=== PATIENT | male | born 1950 | race Caucasian/White ===

== ENCOUNTER → 2018-01-01 | Outpatient (CLI) | payer BC, MEDICARE ==
[~2018-01-01] MED LIST: AMIO200T2 PO; AMLO1CAP31; AMLO1CAP4 PO; ASPI-983 PO; ATOR10TA66 PO; CEPH250C PO; DOXA4TAB2 PO; DOXY100T2 PO; DXZS4T PO; FURO-124 PO; HCT25T; HCT25T PO; HYDR50TA3 PO; IBP800T; IBUP-15 PO; IBUP-2055 PO; INSASP10V; INSU100C4; INSU100C4 SQ; INSU100I10 SQ; INSU100I23 SQ; INSU100I3; INSU100V8; LISI10TA2 PO; LOTREL 5/10; LVF500T PO; METF-380 PO; METF1000 PO; METO-370 PO; METO-387 PO; MPR22T TOP; MTF500TCR; NF-URO10; PROP10TA8 PO; SACU1TAB PO; SIMV20TA3 PO; SITA100T12 PO; VENL75CA93 PO; VICODIN 5/500; VNL75CCR; VNL75CCR PO; ZINC50TA31 PO; ZINC50TA51 PO; [UNRECOGNIZED DRUG - CODE] PO
--- NOTE | 2018-01-01 16:16 | Diagnostic Imaging Report ---
INDICATION: Left ankle pain. EXAMINATION: AP, oblique and lateral views of the left ankle were obtained. FINDINGS: There is advanced degenerative change of the ankle joint with joint space narrowing and osteophyte formation. There are multiple adjacent calcifications which are probably chronic. There is marked degenerative change of the talocalcaneal joints and throughout the tarsal bones. There are vascular calcifications noted. IMPRESSION: Extensive degenerative changes throughout the tarsal bones and talocalcaneal joints and ankle joint. Chronic calcifications adjacent to the ankle joint are noted. There is no definite acute process. Dictated by: Dictated on workstation # [id number]
== END ==
LOC: RAD 15:43
PROVIDERS: ATTEND Internal Medicine Cardiovascular Disease
DX: M19.072 Primary osteoarthritis, left ankle and foot (principal); M89.8X7 Other specified disorders of bone, ankle and foot
CPT/HCPCS: 73610

== ENCOUNTER → 2018-01-05 | Outpatient (CLI) | payer BC, MEDICARE ==
[~2018-01-05] MED LIST changes: +CATHETER FLUSH 10 ML SYR IV PRN; +IOHEXOL 350 MG/ML 150 ML (OMNIPAQUE 350) VIAL IV ONE; +NS 100 ML (IVPB) BAG IV ONE
[2018-01-05 08:23] LABS: BUN/CREATININE RATIO 15; CALCIUM 9.2 MG/DL (8.5-10.1); CARBON DIOXIDE 22 MMOL/L (21-32); CHLORIDE 105 MMOL/L (98-107); CREATININE SERUM 1.15 MG/DL (0.60-1.30); GFR ESTIMATED > 60; GLUCOSE 172 MG/DL (70-105); POTASSIUM 4.1 MMOL/L (3.6-5.0); SODIUM 138 MMOL/L (135-145)
--- NOTE | 2018-01-05 10:20 | Diagnostic Imaging Report ---
INDICATION: Left foot pain and discoloration as well as claudication. TECHNIQUE: Axial imaging through the abdomen, pelvis and bilateral lower extremities was performed after the administration of intravenous contrast and utilizing CT angiography protocol. Multiplanar, 3-D and MIP reformations were also performed. COMPARISON: No prior studies are available for comparison. FINDINGS: The lung bases are clear. The liver is unremarkable. The gallbladder is surgically absent. The pancreas and spleen are unremarkable. No adrenal mass is detected. The right kidney contains a 6.8 cm cyst. The visualized small and large bowel loops are unremarkable. The appendix is unremarkable. There is no ascites. Bladder and prostate are unremarkable. The aorta does show some atherosclerotic calcifications but is non-aneurysmal. There are single renal arteries bilaterally. There appears to be some calcification at the origins of the renal arteries bilaterally. Bilateral common and external iliacs demonstrate atherosclerotic plaque but no high-grade stenosis is seen. Bilateral common femoral arteries are patent. The celiac and SMA are patent. The LESTER is patent. Bilateral superficial femoral arteries do show some mild calcified plaque but no high-grade stenosis is seen. Bilateral popliteal arteries are patent. There is a large popliteal cyst on the right with a small popliteal cyst on the left. Tibial vessels are calcified. There appears to be multifocal disease within the right anterior tibial artery which may occlude distally. There is two-vessel runoff on the right via the peroneal and posterior tibial artery. Left anterior tibial artery is very small and is poorly visualized distally. There appears to be two-vessel runoff to the ankle on the left via the posterior tibial and peroneal. There are severe degenerative changes involving the left ankle. Dorsalis pedis on the left is unremarkable. Dorsalis pedis on the right appears to be very small. IMPRESSION: There are atherosclerotic changes in the aorta and lower extremity arterial systems however no high-grade stenosis or occlusion is seen. There is two-vessel runoff to the ankles bilaterally. Dictated by: Dictated on workstation # [id number]
== END ==
LOC: RAD 07:43
PROVIDERS: ATTEND Physician Assistant
DX: I73.9 Peripheral vascular disease, unspecified (principal); I70.0 Atherosclerosis of aorta; L81.8 Other specified disorders of pigmentation
CPT/HCPCS: 36415; 75635; 80048

== ENCOUNTER → 2018-01-19 | Outpatient (CLI) | payer BC, MEDICARE ==
[~2018-01-19] MED LIST changes: -CATHETER FLUSH 10 ML SYR IV PRN; -IOHEXOL 350 MG/ML 150 ML (OMNIPAQUE 350) VIAL IV ONE; -NS 100 ML (IVPB) BAG IV ONE
== END ==
LOC: CARD 11:46
PROVIDERS: ATTEND Internal Medicine Cardiovascular Disease
DX: I11.0 Hypertensive heart disease with heart failure (principal); I50.9 Heart failure, unspecified; E11.9 Type 2 diabetes mellitus without complications; E78.2 Mixed hyperlipidemia; E66.9 Obesity, unspecified; M48.00 Spinal stenosis, site unspecified
CPT/HCPCS: 93306

== ENCOUNTER → 2018-11-24 | Outpatient (CLI) | payer BC, MEDICARE ==
[~2018-11-24] MED LIST changes: -AMIO200T2 PO; +AMIO200T4 PO; +METF-399 PO; -METF1000 PO; -ZINC50TA31 PO; +ZINC50TA58 PO
--- NOTE | 2018-11-24 10:00 | Diagnostic Imaging Report ---
PA and lateral chest at 1004 hours. INDICATION: Diabetes, hyperlipidemia. FINDINGS: The heart size is within normal limits and stable when compared to 09/26/2017. The left-sided defibrillator device noted on the prior exam is again evident and no different. The lungs are clear. There is no evidence for failure, pneumonia or for pleural effusion. The mediastinum is not widened. The osseous structures are intact. IMPRESSION: There is no evidence for an acute cardiopulmonary abnormality. Dictated by: Dictated on workstation # [id number]
[2018-11-24 10:23] LABS: BILIRUBIN,TOTAL 0.7 MG/DL (0.1-1.0); CALCIUM 9.2 MG/DL (8.5-10.1); CREATININE SERUM 1.38 MG/DL (0.60-1.30); POTASSIUM 4.5 MMOL/L (3.6-5.0); TOTAL PROTEIN 6.7 GM/DL (6.4-8.2)
[2018-11-24 10:43] LABS: TSH (THYROID ANALYZER) 1.56 UIU/ML (0.35-4.94)
== END ==
LOC: RAD 09:29
PROVIDERS: ATTEND Internal Medicine Cardiovascular Disease
DX: E11.9 Type 2 diabetes mellitus without complications (principal); I10 Essential (primary) hypertension; E78.2 Mixed hyperlipidemia; E66.9 Obesity, unspecified; M48.00 Spinal stenosis, site unspecified
CPT/HCPCS: 36415; 71046; 80053; 84443

== ENCOUNTER → 2018-11-30 | Outpatient (CLI) | payer BC, MEDICARE ==
[~2018-11-30] MED LIST changes: +CATHETER FLUSH 10 ML SYR IV PRN; +REGADENOSON 0.4 MG/5 ML SYR (LEXISCAN) IV ONE
[2018-11-30 09:11] VITALS: BP 136/65
--- NOTE | 2018-11-30 11:46 | STRESS TEST ---
DATE OF SERVICE: 11/30/2018 LEXISCAN MYOVIEW STRESS TEST REPORT Baseline heart rate is 73, baseline blood pressure 141/62. Baseline EKG is sinus rhythm with ventricular paced rhythm. In summary, the patient was injected with 10.27 mCi of technetium-99 Myoview and the resting images were obtained. Then, the patient received 0.4 mg of Lexiscan followed by 30.3 mCi of technetium-99 Myoview. Throughout the test, there were no EKG changes. The resting and stress images were reviewed and compared in the short axis, horizontal long axis, and vertical long axis views. Review of the images showed diaphragmatic attenuation with good radiotracer uptake, no significant ischemia or infarction was seen. SSS is 1. SDS is 1. TID value 0.96. On the gated images, the left ventricle appeared to be dilated with preserved systolic function. Calculated ejection fraction 52%, end diastolic volume 146 mL and systolic volume 71 mL. CONCLUSION: 1. The patient tolerated Lexiscan well. 2. Diaphragmatic attenuation with no significant ischemia or infarction on SPECT images. 3. Prominent left ventricular size with preserved contractility. Calculated ejection fraction 52%. Job ID: [id number] DocumentID: [id number] Dictated Date: 11/30/2018 11:32:[address] Date: 11/30/2018 11:45:11 Dictated By: ETHAN MCKEON MD
== END ==
LOC: RAD 07:20
PROVIDERS: ATTEND Internal Medicine Cardiovascular Disease
DX: I10 Essential (primary) hypertension (principal); E78.2 Mixed hyperlipidemia; E11.9 Type 2 diabetes mellitus without complications; E66.9 Obesity, unspecified; Z68.32 Body mass index [BMI] 32.0-32.9, adult
CPT/HCPCS: 78452; 93017

== ENCOUNTER → 2021-04-02 | Outpatient (CLI) | payer BC, MEDICARE ==
[~2021-04-02] MED LIST changes: -AMIO200T4 PO; +AMIO200T6 PO; +ASPI-1238 PO; -ASPI-983 PO; -CATHETER FLUSH 10 ML SYR IV PRN; -HYDR50TA3 PO; +HYDR50TA6 PO; -IBUP-2055 PO; +IBUP-2473 PO; -LISI10TA2 PO; +LISI10TA25 PO; -METO-370 PO; -METO-387 PO; +METO50TA7 PO; +MTP25TSR PO; -REGADENOSON 0.4 MG/5 ML SYR (LEXISCAN) IV ONE; -SACU1TAB PO; +SACU1TAB2 PO; +SIMV20TA26 PO; -SIMV20TA3 PO
== END ==
LOC: CARD 10:10
PROVIDERS: ATTEND Physician Assistant
DX: I08.3 Combined rheumatic disorders of mitral, aortic and tricuspid valves (principal); I11.9 Hypertensive heart disease without heart failure
CPT/HCPCS: 93306

== ENCOUNTER → 2021-08-20 | Outpatient (CLI) | payer BC, MEDICARE ==
[~2021-08-20] MED LIST changes: +AMOX500C2 PO; +BETA15CR14 TP; +DULA1.5P2 SQ; +FURO40TA4 PO; +IBUP-30 PO; +INSU100V7 SQ; +MTP100TCR PO; +OMG1KC PO; +ROSU10TA28 PO; +TMSL.4C PO
== END ==
LOC: LABNPT 08:15
PROVIDERS: ATTEND Internal Medicine Cardiovascular Disease
DX: Z20.822 Contact with and (suspected) exposure to COVID-19 (principal)
CPT/HCPCS: 87635

== ENCOUNTER 2021-08-22 13:00 | Day surgery (SDC) | payer BC, MEDICARE ==
[~2021-08-22] VITALS: Ht 172.7 cm; Wt 99.0 kg
[2021-08-22] VITALS (7 sets, daily range): BP systolic 110–136; BP diastolic 61–74
[2021-08-22 11:49] LABS: HEMATOCRIT 40 % (40-54); MEAN CORPUSCULAR HEMOGLOBIN 30 pg (25-34); MEAN CORPUSCULAR HGB CONC 33 g/dL (32-36); MEAN CORPUSCULAR VOLUME 92 fL (80-99); MEAN PLATELET VOLUME 9.4 fL (9.0-12.2); PLATELET COUNT 256 10^3/uL (130-400); WHITE BLOOD COUNT 9.5 10^3/uL (4.3-11.0)
[2021-08-22 12:14] LABS: ALBUMIN 3.9 GM/DL (3.2-4.5); BILIRUBIN,TOTAL 1.2 MG/DL (0.1-1.0); CALCIUM 9.3 MG/DL (8.5-10.1); CREATININE SERUM 1.37 MG/DL (0.60-1.30); POTASSIUM 3.5 MMOL/L (3.6-5.0); TOTAL PROTEIN 7.8 GM/DL (6.4-8.2)
--- NOTE | 2021-08-22 12:33 | Diagnostic Imaging Report ---
INDICATION: Preop for heart catheter, coronary artery disease, pacemaker. COMPARISON: 09/26/2017 FINDINGS: Single view the chest demonstrates stable cardiac enlargement. Lungs are clear. There is no pneumothorax but pacemaker stable. IMPRESSION: Cardiac enlargement without pulmonary edema or acute infiltrate. Dictated by: Dictated on workstation # [id number]
[~2021-08-22 13:00] MED LIST changes: +HEParin (CATH LAB) 2,000 ML IV ONE; +LIDOCAINE 1% INJ 20 ML 20 ML VIAL ONE; +LIDOCAINE 2% VISCOUS 15 ML UDC ONE; +LIDOCAINE 2% VISCOUS 15 ML UDC PO ONE; +NS IV 1000 ML 1,000 ML IV SCH; +NS IV 1000 ML 1,000 ML ONE
[2021-08-22] MEDS ORDERED: fentaNYL INJ 100 MCG/2 ML AMP ONE (13:12)
[2021-08-22] MEDS ORDERED: MIDAZOLAM 5 MG/5 ML (VERSED) VIAL ONE (13:13)
[2021-08-22] MEDS ORDERED: NITRO DRIP 25000 MCG/D5W 250 ML IV ONE (14:02)
[2021-08-22] MEDS ORDERED: HEParin 1000 UNIT/ML (10ML VIAL) FOR BOLUS ONE (14:02)
[2021-08-22] MEDS ORDERED: CLOPIDOGREL 300 MG (PLAVIX) TABLET PO ONE (14:23)
[2021-08-22] MEDS ORDERED: ASPIRIN 325 MG (5 GR) TABLET ONE (14:23)
[2021-08-22] MEDS ORDERED: PATIENT MAY USE OWN MEDS, ALL PO SCH (14:30)
--- NOTE | 2021-08-22 14:35 | Cardiac Cath Report ---
Cardiac Cath Report Physician (s)/Tray Packer (s) Physician ETHAN MCKEON MD Pre-Procedure Diagnosis Pre-Procedure Diagnosis: Coronary artery disease Post-Procedure Note Procedure Start Date: Aug 22, 2021 Name of Procedure: Left heart catheterization Stenting to the LAD Findings/Procedure Note PROCEDURE NOTE: 71-year-old gentleman with severe mitral regurgitation, cardiomyopathy, scheduled for SHALONDA and for cardiac catheterization. After explaining the procedure to the patient, all pros and cons were explained, all questions were answered. The patient signed the consent and then he was placed on the cardiac catheterization laboratory. Groin was prepped SL fashion local anesthesia was used. Sheath placed in the left femoral artery. Rhina right and left catheter were used to access the coronary system. Pigtail was used to access the left ventricular cavity. Left ventriculogram was not done, pressure was measured Patient received 5000 units of heparin, EBU guide was advanced to the left coronary system, BMW wire was advanced and parked distally then balloon angioplasty with 2.5 balloon then stenting using Marlin 2.5 x 15 mm expanded to 2.7 mm with excellent results. At the end of the procedure the sheath was removed. Closure device was deployed FINDINGS: Hemodynamics LV 135/20, end-diastolic pressure of 20 Aorta 129/64 mean of 190 ANATOMY: Left Main is free of obstructive disease Left Anterior Descending has severe stenosis distally, successful balloon angioplasty then stenting using Marlin 2.5 x 15 mm expanded to 2.71 mm with excellent results. Left Circumflex is moderate in size with mild disease nonobstructive disease Right Coronary Artery is dominant artery with mild to moderate disease nonobstructive disease LV Gram was not done, pressure was measured CONCLUSION: 1. Severe stenosis at the mid to distal LAD with successful balloon angioplasty then stenting using Marlin 2.5 x 15 mm expanded to 2.71 mm with excellent results 2. Mild to moderate proximal and mid right coronary artery disease, mild disease in the circumflex artery nonobstructive disease 3. Normal left ventricular end-diastolic pressure DISCUSSION AND RECOMMENDATION: Continue to maximize medical therapy, monitor the mitral valve for possible mitral valve clip Anesthesia Type: Conscious Sedation Estimated blood loss (mL): 30 ml Contrast Amount: 104 ml Total Radiation Dose: 1119 mGy Post-Procedure Diagnosis Post-operative diagnosis: Chest pain Coronary artery disease Hypertension Hyperlipidemia ETHAN MCKEON MD Aug 22, 2021 14:35
[2021-08-22] MEDS: NS IV 1000 ML 1,000 ML IV SCH (15:28)
[2021-08-22] MEDS ORDERED: FLU QUAD HIGH DOSE 240 MCG/0.7 ML 2021-22 (FLUZONE) IM ONE (17:00)
[2021-08-22] MEDS ORDERED: INSULIN GLULISINE SQ SCH ×2 (17:45)
[2021-08-22] MEDS ORDERED: IBUPROFEN TABLET 200 MG TAB PO PRN (17:45)
[2021-08-22] MEDS ORDERED: INSULIN GLULISINE 20 UNIT SQ SCH (17:45)
[2021-08-22] MEDS ORDERED: NON-FORMULARY MEDICATION 1 EA EA (Dulaglutide (Trulicity) 1.5 MG) SQ SCH (17:45)
[2021-08-22] MEDS ORDERED: meTOprolol SUCCINATE 100 MG (TOPROL XL) TAB PO SCH ×2 (18:00→18:45)
[2021-08-22] MEDS: AMOXICILLIN 500 MG (POLYMOX) CAP PO SCH (20:10)
[2021-08-22] MEDS: inSUlin (REGULAR) HUMAN 1 UNIT/0.01 ML (CHARGE PER UNIT) SC SCH (20:11)
[2021-08-22] MEDS ORDERED: [UNRECOGNIZED DRUG - OTHER] SQ SCH (21:00)
[2021-08-22] MEDS ORDERED: INSULIN GLARGINE HUM REC ANLOG 24 UNIT SQ SCH (21:00)
[2021-08-22] MEDS ORDERED: TAMSULOSIN 0.4 MG (FLOMAX) CAP PO SCH (21:00)
[2021-08-23 00:15] VITALS: BP 133/80
[2021-08-23] MEDS: NS IV 1000 ML 1,000 ML IV SCH (00:49)
[2021-08-23 04:00] VITALS: BP 121/60
[2021-08-23] MEDS ORDERED: CLOP75TA28 PO (05:45)
[2021-08-23] MEDS ORDERED: PANT40SU PO (05:45)
--- NOTE | 2021-08-23 05:46 | Discharge Inst-Post CATH ---
Discharge Inst-CATH/EP Problems Reviewed?: Yes Post Cardiac Cath/EP D/C Inst Follow Up/Plan Appointment with Dr Eugene in 2-4 weeks <b>CARDIAC CATH/EP PROCEDURE DISCHARGE INSTRUCTIONS</b> ACTIVITY * Go Home directly and rest. * Limit activity of the leg (or wrist if it was used) for 7 days including aerobics, swimming, jogging, bicycling, etc. * Restrict stair-climbing for 7 days if possible, if not, climb up with your non-cath leg, then bring together on the same step. * Avoid lifting, pushing, pulling or excessive movement of the affected extremity for 7 days. * Customary sexual activity may be resumed after 2 days-use caution not to use a position that strains or causes pain to the affected extremity. * No driving for 24 hours. * NO SMOKING. * Avoid straining for bowel movements for 7 days. * Gentle walking on level ground is allowed. * Returning to work will depend on the type of procedure and the results. Your doctor will discuss this with you. CALL YOUR DOCTOR FOR ANY OF THE FOLLOWING: *If bleeding from the puncture site occurs- Apply gentle pressure to site with clean cloth and call your doctor or EMS. * If a knot or lump forms under the skin, increases in size, or causes pain. * If bruising appears to be worsening or moving further down your leg instead of disappearing. * Temperature above 101 F. CARE OF YOUR GROIN INCISION; * Bruising or purple discoloration of the skin near the puncture site is common. * You may shower only, no bathtub bathing for 5 days. Be careful to avoid slipping as your leg may feel stiff. * If a closure device was used on your femoral artery, please see the attached guide regarding care of the device and your leg. * Leave dressing on FOR 24 hours. CARE OF YOUR WRIST INCISION; * Bruising or purple discoloration of the skin near the puncture site is common. * You may shower. * DO NOT submerge wrist. * Leave dressing on FOR 24 hours. ETHAN EUGENE MD Aug 23, 2021 05:46
[2021-08-23 05:59] LABS: HEMATOCRIT 36 % (40-54); HEMOGLOBIN 12.2 g/dL (13.3-17.7); MEAN CORPUSCULAR HEMOGLOBIN 30 pg (25-34); MEAN CORPUSCULAR HGB CONC 34 g/dL (32-36); MEAN CORPUSCULAR VOLUME 91 fL (80-99); MEAN PLATELET VOLUME 9.6 fL (9.0-12.2); PLATELET COUNT 248 10^3/uL (130-400); WHITE BLOOD COUNT 10.1 10^3/uL (4.3-11.0)
[2021-08-23 06:10] LABS: POTASSIUM 3.6 MMOL/L (3.6-5.0)
[2021-08-23 06:11] LABS: CALCIUM 9.4 MG/DL (8.5-10.1)
[2021-08-23 06:15] LABS: CREATININE SERUM 1.26 MG/DL (0.60-1.30)
[2021-08-23] MEDS: inSUlin (REGULAR) HUMAN 1 UNIT/0.01 ML (CHARGE PER UNIT) SC SCH (06:20)
[2021-08-23] MEDS ORDERED: VENlafaxine XR 75 MG (EFFEXOR XR) CAP PO SCH (07:00)
[2021-08-23 08:00] VITALS: BP 142/82
[2021-08-23] MEDS: AMOXICILLIN 500 MG (POLYMOX) CAP PO SCH (08:33)
--- NOTE | 2021-08-23 08:34 | Cardiology Progress Note ---
Subjective Date Seen by Provider: Aug 23, 2021 Time Seen by Provider: 08:32 Subjective/Events-last exam Patient was seen and evaluated, laying down in bed, groin is healing well. No new complaint Review of Systems General: No Chills, No Night Sweats, No Fatigue, No Malaise, No Appetite, No Other HEENT: No Head Aches, No Visual Changes, No Eye Pain, No Ear Pain, No D ysphasia, No Sinus Congestion, No Post Nasal Drip, No Sore Throat, No Other Pulmonary: No Dyspnea, No Cough, No Pleuritic Chest Pain, No Other Cardiovascular: No: Chest Pain, Palpitations, Orthopnea, Paroxysmal Noc. Dyspnea, Edema, Lt Headedness, Other Objective-Cardiology Exam Last Set of Vital Signs Vital Signs 08/23/21 08:00 Temp 36.6 Pulse 71 Resp 22 B/P (MAP) 142/82 (102) Pulse Ox 92 O2 Delivery Room Air I&O Intake and Output 08/23/21 00:00 Intake Total 720 ml Balance 720 ml Intake Oral 720 ml # Voids 2 General: Alert, Oriented X3, Cooperative HEENT: Atraumatic, PERRLA Neck: Supple, No JVD, No Thyromegaly Lungs: Clear to Auscultation, Normal Air Movement Heart: Regular Rate, Normal S1, Normal S2, No Murmurs Abdomen: Normal Bowel Sounds, Soft, No Tenderness, No Hepatosplenomegaly, No Masses Extremities: No Clubbing, No Cyanosis, No Edema, Normal Pulses, No Tenderness/Swelling Skin: No Rashes, No Breakdown, No Significant Lesion Neuro: Normal Gait, Normal Speech, Strength at 5/5 X4 Ext, Normal Tone, Sensation Intact Psych/Mental Status: Mental Status NL, Mood NL Results Lab Laboratory Tests 08/22/21 11:43 08/23/21 05:47 A/P-Cardiology Admission Diagnosis Coronary artery disease Hypertension Hyperlipidemia Diabetes mellitus Assessment/Plan Coronary artery disease status post stenting to the LAD with good results, educated about medication noncompliance with medication, groin is healed well. Hypertension, blood pressure Hyperlipidemia, continue current medications Diabetes mellitus ETHAN MCKEON MD Aug 23, 2021 08:34
[2021-08-23] MEDS ORDERED: CLOPIDOGREL 75 MG (PLAVIX) TABLET PO SCH (09:00)
[2021-08-23] MEDS ORDERED: AMIODARONE 200 MG (CORDARONE) TAB PO SCH (09:00)
[2021-08-23] MEDS ORDERED: ASPIRIN E.C. 81 MG (ECOTRIN) TAB PO SCH (09:00)
[2021-08-23] MEDS ORDERED: FUROSEMIDE 40 MG (LASIX) TAB PO SCH (09:00)
[2021-08-23] MEDS ORDERED: ROSUVASTATIN 10 MG (CRESTOR) TABLET PO SCH (12:00)
[2021-08-23] MEDS ORDERED: lisINopril 10 MG (PRINIVIL) TABLET PO SCH (12:00)
--- NOTE | 2021-09-03 13:37 | Conscious Sedation/ASA ---
HECTOR LIND 09/03/21 1337: Conscious Sedation Pre-Proced ASA Score For ASA 3 and 4: Consider anesthesia and medical clearance. Also, for patients with a history of failed moderate sedation consider anesthesia. Airway Lungs Heart ASA score ASA 1: a normal healthy patient ASA 2: a patient with a mild systemic disease (mid diabetes, controlled hypertension, obesity ASA 3: a patient with a severe systemic disease that limits activity (angina, COPD, prior Myocardial infarction) ASA 4: a patient with an incapacitating disease that is a constant threat to life (CHF, renal failure) ASA 5: a moribund patient not expected to survive 24 hrs. (ruptured aneurysm) ASA 6: a declared brain- patient whose organs are being harvested. For emergent operations, add the letter E after the classification Sedation Plan The patient is an appropriate candidate to undergo the planned procedure, sedation, and anesthesia. The patient immediately re-assessed prior to indication. ETHAN MCKEON MD 09/05/21 0726: Conscious Sedation Pre-Proced Time 07:26 ASA Score 3 Mallampati Classification Grade 3 Sedation Plan Analgesia, Amnesia, Plan communicated to team members, Discussed options with patient/fam, Discussed risks with patient/fam HECTOR LIND Sep 03, 2021 13:37 ETHAN MCKEON MD Sep 05, 2021 07:26
[2021-09-14] MEDS ORDERED: LEVO750T39 PO (08:47)
== END 2021-08-23 09:59 | disposition home or self-care (01) ==
LOC: CATH 13:00 → CSD 15:11 → CATH 08-23 09:59
PROVIDERS: ATTEND Internal Medicine Cardiovascular Disease
DX: I25.10 Atherosclerotic heart disease of native coronary artery without angina pectoris (principal); I10 Essential (primary) hypertension; I47.2 Ventricular tachycardia; I50.9 Heart failure, unspecified; I42.8 Other cardiomyopathies; I08.1 Rheumatic disorders of both mitral and tricuspid valves; I63.9 Cerebral infarction, unspecified; I65.23 Occlusion and stenosis of bilateral carotid arteries; I73.9 Peripheral vascular disease, unspecified; M48.00 Spinal stenosis, site unspecified; G47.33 Obstructive sleep apnea (adult) (pediatric); N40.0 Benign prostatic hyperplasia without lower urinary tract symptoms; E11.9 Type 2 diabetes mellitus without complications; E78.2 Mixed hyperlipidemia; E66.9 Obesity, unspecified; Z68.33 Body mass index [BMI] 33.0-33.9, adult; Z79.82 Long term (current) use of aspirin; Z79.899 Other long term (current) drug therapy; Z83.3 Family history of diabetes mellitus
CPT/HCPCS: 71045; 80048; 80053; 80061; 82947; 85027 ×2; 85610; 85730; 87081; 93005; 93458; C1725; C1760; C1769; C1874; C1887 ×2; C1894; C9600; 36415

== ENCOUNTER 2021-09-14 10:00 | Day surgery (SDC) | payer BC, MEDICARE ==
[~2021-09-14] VITALS: Ht 173 cm; Wt 100.0 kg
[2021-09-14] VITALS (11 sets, daily range): BP systolic 112–133; BP diastolic 57–85
[2021-09-14 08:24] LABS: HEMATOCRIT 40 % (40-54); HEMOGLOBIN 13.1 g/dL (13.3-17.7); MEAN CORPUSCULAR HEMOGLOBIN 30 pg (25-34); MEAN CORPUSCULAR HGB CONC 33 g/dL (32-36); MEAN CORPUSCULAR VOLUME 91 fL (80-99); MEAN PLATELET VOLUME 9.2 fL (9.0-12.2); PLATELET COUNT 265 10^3/uL (130-400); WHITE BLOOD COUNT 10.1 10^3/uL (4.3-11.0)
[2021-09-14 08:39] LABS: INR 1.1 (0.8-1.4); PROTHROMBIN TIME PATIENT 14.1 SEC (12.2-14.7)
[2021-09-14 08:48] LABS: BILIRUBIN,TOTAL 1.1 MG/DL (0.1-1.0); CALCIUM 9.7 MG/DL (8.5-10.1); CREATININE SERUM 1.5 MG/DL (0.60-1.30); POTASSIUM 3.9 MMOL/L (3.6-5.0); TOTAL PROTEIN 7.7 GM/DL (6.4-8.2)
--- NOTE | 2021-09-14 08:57 | Diagnostic Imaging Report ---
INDICATION: Nonhealing wound, peripheral arterial disease. Evaluation prior to angiography with possible angioplasty. TECHNIQUE: Single view chest 8:49 AM. CORRELATION STUDY: 08/22/2021 FINDINGS: Left-sided AICD, stable. Stable mild cardiac enlargement without failure. The lungs are clear with no consolidating infiltrate. There is no significant effusion or pneumothorax. IMPRESSION: 1. Stable cardiac enlargement. No acute cardiopulmonary abnormality Dictated by: Dictated on workstation # [id number]
[~2021-09-14 10:00] MED LIST changes: +CLOP75TA28 PO; +LEVO750T39 PO; -LIDOCAINE 2% VISCOUS 15 ML UDC ONE; -LIDOCAINE 2% VISCOUS 15 ML UDC PO ONE; +MIDAZOLAM 5 MG/5 ML (VERSED) VIAL ONE; +PANT40SU PO; +fentaNYL INJ 100 MCG/2 ML AMP ONE
[2021-09-14] MEDS ORDERED: HEParin 1000 UNIT/ML (10ML VIAL) FOR BOLUS ONE (10:15)
[2021-09-14] MEDS ORDERED: NITRO DRIP 25000 MCG/D5W 250 ML IV ONE (10:16)
[2021-09-14] MEDS ORDERED: NS IV 1000 ML 1,000 ML ONE (10:22)
[2021-09-14] MEDS ORDERED: ASPIRIN 325 MG (5 GR) TABLET ONE (10:54)
[2021-09-14] MEDS ORDERED: CLOPIDOGREL 300 MG (PLAVIX) TABLET PO ONE (10:54)
--- NOTE | 2021-09-14 10:55 | Discharge Inst-Post CATH ---
Discharge Inst-CATH/EP Problems Reviewed?: Yes Post Cardiac Cath/EP D/C Inst Follow Up/Plan Appointment with Dr Eugene in 2-4 weeks <b>CARDIAC CATH/EP PROCEDURE DISCHARGE INSTRUCTIONS</b> ACTIVITY * Go Home directly and rest. * Limit activity of the leg (or wrist if it was used) for 7 days including aerobics, swimming, jogging, bicycling, etc. * Restrict stair-climbing for 7 days if possible, if not, climb up with your non-cath leg, then bring together on the same step. * Avoid lifting, pushing, pulling or excessive movement of the affected extremity for 7 days. * Customary sexual activity may be resumed after 2 days-use caution not to use a position that strains or causes pain to the affected extremity. * No driving for 24 hours. * NO SMOKING. * Avoid straining for bowel movements for 7 days. * Gentle walking on level ground is allowed. * Returning to work will depend on the type of procedure and the results. Your doctor will discuss this with you. CALL YOUR DOCTOR FOR ANY OF THE FOLLOWING: *If bleeding from the puncture site occurs- Apply gentle pressure to site with clean cloth and call your doctor or EMS. * If a knot or lump forms under the skin, increases in size, or causes pain. * If bruising appears to be worsening or moving further down your leg instead of disappearing. * Temperature above 101 F. CARE OF YOUR GROIN INCISION; * Bruising or purple discoloration of the skin near the puncture site is common. * You may shower only, no bathtub bathing for 5 days. Be careful to avoid slipping as your leg may feel stiff. * If a closure device was used on your femoral artery, please see the attached guide regarding care of the device and your leg. * Leave dressing on FOR 24 hours. CARE OF YOUR WRIST INCISION; * Bruising or purple discoloration of the skin near the puncture site is common. * You may shower. * DO NOT submerge wrist. * Leave dressing on FOR 24 hours. ETHAN EUGENE MD Sep 14, 2021 10:55
--- NOTE | 2021-09-14 10:57 | Conscious Sedation/ASA ---
Conscious Sedation Pre-Proced Time 10:57 ASA Score 3 For ASA 3 and 4: Consider anesthesia and medical clearance. Also, for patients with a history of failed moderate sedation consider anesthesia. Airway Lungs Heart ASA score ASA 1: a normal healthy patient ASA 2: a patient with a mild systemic disease (mid diabetes, controlled hypertension, obesity x ASA 3: a patient with a severe systemic disease that limits activity (angina, COPD, prior Myocardial infarction) ASA 4: a patient with an incapacitating disease that is a constant threat to life (CHF, renal failure) ASA 5: a moribund patient not expected to survive 24 hrs. (ruptured aneurysm) ASA 6: a declared brain- patient whose organs are being harvested. For emergent operations, add the letter E after the classification Mallampati Classification Grade 3 Sedation Plan Analgesia, Amnesia, Plan communicated to team members, Discussed options with patient/fam, Discussed risks with patient/fam The patient is an appropriate candidate to undergo the planned procedure, sedation, and anesthesia. The patient immediately re-assessed prior to indication. ETHAN MCKEON MD Sep 14, 2021 10:57
[2021-09-14] MEDS ORDERED: NS IV 1000 ML 1,000 ML IV SCH (11:00)
[2021-09-14] MEDS ORDERED: PATIENT MAY USE OWN MEDS, ALL PO SCH (11:00)
--- NOTE | 2021-09-14 11:06 | Peripheral Report ---
Peripheral Report Physician (s)/Private Investigator Surveillance (s) Physician ETHAN MCKEON MD Pre-Procedure Diagnosis Pre-Procedure Diagnosis: Peripheral arterial disease Post-Procedure Note Procedure Start Date: Sep 14, 2021 Name of Procedure: Bilateral lower extremities runoff Third order Additional imaging x2 Angioplasty to the left peroneal artery Findings/Procedure Note PROCEDURE NOTE: 71-year-old gentleman with peripheral arterial disease nonhealing foot ulcer, had abnormal TBI, slightly abnormal MITCHELL, referred for evaluation, underwent cardiac catheterization last week and I decided to proceed with angiogram to his lower extremities this week, procedure was cut into 2 procedures due to his underlying renal insufficiency After explaining the procedure to the patient, all pros and cons were explained, all questions were answered. The patient signed the consent and then he was placed on the cardiac catheterization laboratory. The patient was placed on the cardiac catheterization laboratory. Groin was prepped SL fashion local anesthesia was used. Sheath placed in the right femoral artery, rim catheter was used to cross over and exchanged into straight catheter placed in the SFA, runoff to the left leg was done, DSA second imaging to the trifurcation was done. At that point I exchanged the catheter and gave the patient 5000 units of heparin, I used a 6 Faroese sheath that is 70 cm long advance it to the mid SFA to limit the amount of contrast I used, advanced a straight catheter then command 14 in the anterior tibial artery and engaged the straight catheter in the anterior tibial artery and did selective angiogram the anterior tibial artery was not feeling with the runoff but once we did selective angiogram it appeared to have excellent flow down to the foot, the catheter retracted then I advanced the wire and the peroneal artery and advanced the straight catheter to the peroneal artery and did selective angiogram in the peroneal artery that has the severe diffuse stenosis. I proceeded with balloon angioplasty using Arena 3 x 200 with multiple inflation, angiogram showed excellent results. Final runoff showed mild to moderate lesion in the distal part of the peroneal artery. The sheath was retracted and exchanged into a short 6 Faroese sheath and runoff to the right leg was done then DSA angiogram to the trifurcation was done on the right leg. FINDINGS: Right lower extremity: Mild to moderate disease nonobstructive disease down to the trifurcation, the anterior tibial artery appeared to have significant disease. The posterior tibial artery and peroneal artery has mild to moderate disease. Left lower extremity: Left SFA has atherosclerotic plaque nonobstructive disease Left anterior tibial artery has mild disease nonobstructive disease Left posterior tibial artery is a calcified artery, I was able to visualize the whole artery without contrast. There is mild disease nonobstructive disease Left peroneal artery has severe diffuse disease successful balloon angioplasty using Arena 3 x 200 with multiple inflation with excellent results CONCLUSIONS: 1. Balloon angioplasty to the left peroneal artery with Arena 3 x 200 with multiple inflation with excellent results, moderate disease at the distal peroneal artery 2. Heavily calcified left anterior tibial and posterior tibial artery, mild to moderate disease nonobstructive disease 3. Mild to moderate disease in the left and right SFA 4. Moderate severe stenosis at the right anterior tibial artery 5. Calcified right posterior tibial and peroneal artery with nonobstructive disease DISCUSSION AND RECOMMENDATIONS: Continue on aspirin and Plavix, continue to maximize medical therapy Anesthesia Type: Conscious Sedation Estimated blood loss (mL): 20 ml Contrast Amount: 37 ml Total Radiation Dose: 192 mGy Post-Procedure Diagnosis Post-operative diagnosis: Nonhealing foot ulcer Peripheral arterial disease Hypertension Hyperlipidemia ETHAN MCKEON MD Sep 14, 2021 11:06
== END 2021-09-14 16:54 ==
LOC: CATH 10:00 → CSD 11:28 → CATH 16:54
PROVIDERS: ATTEND Internal Medicine Cardiovascular Disease
DX: I70.203 Unspecified atherosclerosis of native arteries of extremities, bilateral legs (principal); L97.508 Non-pressure chronic ulcer of other part of unspecified foot with other specified severity; E11.51 Type 2 diabetes mellitus with diabetic peripheral angiopathy without gangrene; I25.10 Atherosclerotic heart disease of native coronary artery without angina pectoris; I47.2 Ventricular tachycardia; I11.0 Hypertensive heart disease with heart failure; I50.9 Heart failure, unspecified; E78.2 Mixed hyperlipidemia; I42.8 Other cardiomyopathies; I34.0 Nonrheumatic mitral (valve) insufficiency; M48.00 Spinal stenosis, site unspecified; I65.23 Occlusion and stenosis of bilateral carotid arteries; N40.0 Benign prostatic hyperplasia without lower urinary tract symptoms; G47.33 Obstructive sleep apnea (adult) (pediatric); Z79.899 Other long term (current) drug therapy; Z79.82 Long term (current) use of aspirin; Z79.02 Long term (current) use of antithrombotics/antiplatelets; Z79.4 Long term (current) use of insulin; Z79.1 Long term (current) use of non-steroidal anti-inflammatories (NSAID); Z79.2 Long term (current) use of antibiotics
CPT/HCPCS: 36415; 71045; 80053; 85027; 85610; 85730; 87081

== ENCOUNTER → 2023-01-09 | Outpatient (CLI) | payer BC, MEDICARE ==
[~2023-01-09] MED LIST changes: -AMIO200T6 PO; +AMIO200T65 PO; -HEParin (CATH LAB) 2,000 ML IV ONE; +LEVO750T PO; -LEVO750T39 PO; -LIDOCAINE 1% INJ 20 ML 20 ML VIAL ONE; -MIDAZOLAM 5 MG/5 ML (VERSED) VIAL ONE; -NS IV 1000 ML 1,000 ML IV SCH; -NS IV 1000 ML 1,000 ML ONE; -fentaNYL INJ 100 MCG/2 ML AMP ONE
== END ==
LOC: CARD 08:56
PROVIDERS: ATTEND Physician Assistant
DX: I08.3 Combined rheumatic disorders of mitral, aortic and tricuspid valves (principal); I11.9 Hypertensive heart disease without heart failure
CPT/HCPCS: 93306

== ENCOUNTER → 2023-01-20 | Outpatient (CLI) | payer BC, MEDICARE ==
--- NOTE | 2023-01-20 11:03 | Diagnostic Imaging Report ---
PROCEDURE: US Renal Bilateral. TECHNIQUE: Multiple Real-time grayscale images were obtained over the kidneys in various projections bilaterally. INDICATION: Chronic kidney disease stage III. FINDINGS: The right kidney measures 11.1 x 5.5 x 5.1 cm and the left kidney measures 10.9 x 5.1 x 5.8 cm. The cortical thickness and echogenicity are normal. There is a large cyst in the lower pole of the right kidney measuring 7.1 x 6.3 x 7.0 cm. A smaller cyst in the midportion measures 2.4 x 1.6 x 2.4 cm. The left kidney contains echogenic foci, the largest measuring 4 mm, and perhaps non-obstructing calculi. There is no hydronephrosis. Prevoid bladder volume is 40 mL. No post void residual volume is seen. Bilateral ureteral jets were visualized. IMPRESSION: Large right renal cysts. No solid renal mass is detected apart from non-obstructing calculi in the left kidney. There is no hydronephrosis. Dictated by: Dictated on workstation # [id number]
== END ==
LOC: RAD 09:00
PROVIDERS: ATTEND Internal Medicine Nephrology
DX: N20.0 Calculus of kidney (principal); N28.1 Cyst of kidney, acquired; I12.9 Hypertensive chronic kidney disease with stage 1 through stage 4 chronic kidney disease, or unspecified chronic kidney disease; N18.32 Chronic kidney disease, stage 3b; R60.0 Localized edema; R53.83 Other fatigue; D63.1 Anemia in chronic kidney disease; R80.8 Other proteinuria
CPT/HCPCS: 76770

== ENCOUNTER → 2023-02-12 | Outpatient (CLI) | payer BC, MEDICARE ==
[~2023-02-12] MED LIST changes: +CATHETER FLUSH 10 ML SYR IVP PRN; +REGADENOSON 0.4 MG/5 ML SYR (LEXISCAN) IV ONE
[2023-02-12 11:46] VITALS: BP 118/58
--- NOTE | 2023-02-12 15:16 | Cardiology Stress Test Report ---
Stress Test Report Date of Procedure/Referring: Date of Procedure: Feb 12, 2023 PCP Billy Marks MD Admitting Physician Admitting Physician: Attending Physician: Joanie Woody Indications: CHF Baseline Heart Rate: 61 Baseline Blood Pressure: Blood Pressure Systolic: 118 Blood Pressure Diastolic: 58 Baseline Vitals Vital Signs Date Time Temp Pulse Resp B/P (MAP) Pulse Ox O2 Delivery O2 Flow Rate FiO2 02/12/23 11:46 61 118/58 (78) Baseline EKG: Baseline EKG: LBBB Summary After explaining the procedure to the patient, he signed a consent and then brought to the stress nuclear laboratory. Patient received 0.4 mg Lexiscan for stress test, ECG, heart rate and blood pressure were monitored continuously. Resting and stress dose of radio tracer were injected, imaging was acquired and reviewed in short axis, horizontal long axis and vertical long axis views. TID: 1.02 SSS: 7 SDS: 3 EF: 31 Patient tolerated Lexiscan well Underlying paced rhythm persisted during test Fixed defect involving the inferior wall with reversible ischemia involving the mid to apical inferior lateral wall Dilated left ventricle with diffuse left ventricular hypokinesia, ejection fraction 31% Copy Copies To 1: BILLY MARKS MD, BASHAR J MD Feb 12, 2023 15:16
== END ==
LOC: CARD 10:34
PROVIDERS: ATTEND Physician Assistant
DX: I47.20 Ventricular tachycardia, unspecified (principal)
CPT/HCPCS: 78452; 93017; A9502

== ENCOUNTER 2023-02-17 09:00 | Day surgery (SDC) | payer BC, MEDICARE ==
[2023-02-17] VITALS (9 sets, daily range): BP systolic 109–141; BP diastolic 61–77
[~2023-02-17] VITALS: Ht 172.7 cm; Wt 96.3 kg
[2023-02-17 07:36] LABS: HEMATOCRIT 34 % (40-54); MEAN CORPUSCULAR HEMOGLOBIN 29 pg (25-34); MEAN CORPUSCULAR HGB CONC 33 g/dL (32-36); MEAN CORPUSCULAR VOLUME 89 fL (80-99); MEAN PLATELET VOLUME 10.3 fL (9.0-12.2); PLATELET COUNT 267 10^3/uL (130-400); WHITE BLOOD COUNT 11.9 10^3/uL (4.3-11.0)
--- NOTE | 2023-02-17 07:38 | Diagnostic Imaging Report ---
Indication: Coronary artery disease. COMPARED: 09/14/2021 FINDINGS: The heart is mildly enlarged, increased from prior. Pacemaker device stable. No focal consolidation or lina edema. No convincing evidence for pleural fluid. IMPRESSION: Slight increased upper limits heart size. Clear lungs with no acute pleural pathology however. Dictated by: Dictated on workstation # [id number]
[2023-02-17 07:50] LABS: ALBUMIN 3.8 GM/DL (3.2-4.5); POTASSIUM 3.4 MMOL/L (3.6-5.0)
[2023-02-17 07:53] LABS: TOTAL PROTEIN 7.2 GM/DL (6.4-8.2)
[2023-02-17 07:54] LABS: BILIRUBIN,TOTAL 1.1 MG/DL (0.1-1.0)
[2023-02-17 07:56] LABS: CREATININE SERUM 1.98 MG/DL (0.60-1.30)
[2023-02-17 07:58] LABS: INR 1.1 (0.8-1.4)
[2023-02-17 08:47] LABS: BILIRUBIN,URINE NEGATIVE (NEGATIVE); CLARITY,URINE CLEAR; COLOR,URINE YELLOW; GLUCOSE, URINE (UA) NEGATIVE (NEGATIVE); KETONES,URINE NEGATIVE (NEGATIVE); LEUKOCYTE ESTERASE ,URINE NEGATIVE (NEGATIVE); NITRITE,URINE NEGATIVE (NEGATIVE); PROTEIN,URINE TRACE (NEGATIVE)
--- NOTE | 2023-02-17 08:53 | Cardiac Procedure Note-CS/ASA ---
Pre-Procedure Note Pre-Op Procedure Note Date of Available H&P: Feb 13, 2023 Date H&P Reviewed: Feb 17, 2023 Time H&P Reviewed: 08:52 History & Physical: H&P Reviewed, Patient Examed, No changes noted Pre-Operative Diagnosis: CAD Moderate Sedation PreProcedure Time 08:53 ASA Score 3 Airway Lungs Heart ASA score ASA 1: a normal healthy patient ASA 2: a patient with a mild systemic disease (mid diabetes, controlled hypertension, obesity ASA 3: a patient with a severe systemic disease that limits activity (angina, COPD, prior Myocardial infarction) ASA 4: a patient with an incapacitating disease that is a constant threat to life (CHF, renal failure) ASA 5: a moribund patient not expected to survive 24 hrs. (ruptured aneurysm) ASA 6: a declared brain- patient whose organs are being harvested. For emergent operations, add the letter E after the classification Mallampati Classification Grade 3 Sedation Plan Analgesia, Amnesia, Plan communicated to team members, Discussed options with patient/fam, Discussed risks with patient/fam The patient is an appropriate candidate to undergo the planned procedure, sedation, and anesthesia. The patient immediately re-assessed prior to indication. ETHAN MCKEON MD Feb 17, 2023 08:53
[~2023-02-17 09:00] MED LIST changes: +CALC-1072 PO; +CALC0.253 PO; -CATHETER FLUSH 10 ML SYR IVP PRN; +DULA4.5P SQ; +FERR236T3 PO; +HEParin (CATH LAB) 2,000 ML IV ONE; +HEParin 1000 UNIT/ML (10ML VIAL) FOR BOLUS ONE; +INSU100I32 SQ; +LIDOCAINE 1% INJ 20 ML VIAL ONE; +MAGN400T39 PO; +MIDAZOLAM 5 MG/5 ML (VERSED) VIAL ONE; +NITRO DRIP 25000 MCG/D5W 250 ML IV ONE; +NS IV 1000 ML 1,000 ML IV SCH; +NS IV 1000 ML 1,000 ML ONE; +PANT40TA52 PO; -REGADENOSON 0.4 MG/5 ML SYR (LEXISCAN) IV ONE; +VERAPAMIL 5 MG/2 ML (CALAN) VIAL IV ONE; +fentaNYL INJ 100 MCG/2 ML AMP ONE
[2023-02-17 09:04] LABS: BACTERIA,URINE NEGATIVE /HPF; RBC,URINE RARE /HPF; SQUAMOUS EPITHELIAL CELL,UR RARE /HPF; WBC,URINE RARE /HPF
--- NOTE | 2023-02-17 09:33 | Discharge Inst-Post CATH ---
Discharge Inst-CATH/EP Problems Reviewed?: Yes Post Cardiac Cath/EP D/C Inst Follow Up/Plan Appointment with Dr. Eugene's office in 2 to 4 weeks <b>CARDIAC CATH/EP PROCEDURE DISCHARGE INSTRUCTIONS</b> ACTIVITY * Go Home directly and rest. * Limit activity of the leg (or wrist if it was used) for 7 days including aer obics, swimming, jogging, bicycling, etc. * Restrict stair-climbing for 7 days if possible, if not, climb up with your non-cath leg, then bring together on the same step. * Avoid lifting, pushing, pulling or excessive movement of the affected extremi ty for 7 days. * Customary sexual activity may be resumed after 2 days-use caution not to use a position that strains or causes pain to the affected extremity. * No driving for 24 hours. * NO SMOKING. * Avoid straining for bowel movements for 7 days. * Gentle walking on level ground is allowed. * Returning to work will depend on the type of procedure and the results. Your doctor will discuss this with you. CALL YOUR DOCTOR FOR ANY OF THE FOLLOWING: *If bleeding from the puncture site occurs- Apply gentle pressure to site with clean cloth and call your doctor or EMS. * If a knot or lump forms under the skin, increases in size, or causes pain. * If bruising appears to be worsening or moving further down your leg instead of disappearing. * Temperature above 101 F. CARE OF YOUR GROIN INCISION; * Bruising or purple discoloration of the skin near the puncture site is common. * You may shower only, no bathtub bathing for 5 days. Be careful to avoid slipping as your leg may feel stiff. * If a closure device was used on your femoral artery, please see the attached guide regarding care of the device and your leg. * Leave dressing on FOR 24 hours. CARE OF YOUR WRIST INCISION; * Bruising or purple discoloration of the skin near the puncture site is common. * You may shower. * DO NOT submerge wrist. * Leave dressing on FOR 24 hours. ETHAN EUGENE MD Feb 17, 2023 09:33
--- NOTE | 2023-02-17 09:38 | Cardiac Cath Report ---
Cardiac Cath Report Physician (s)/Scrap Shear Operator (s) Physician ETHAN MCKEON MD Pre-Procedure Diagnosis Pre-Procedure Diagnosis: CAD Post-Procedure Note Procedure Start Date: Feb 17, 2023 Name of Procedure: Left heart catheterization Findings/Procedure Note PROCEDURE NOTE: 72-year-old gentleman with history of coronary artery disease, congestive heart failure, chronic compensated left ventricular systolic dysfunction, has an abnormal stress test, scheduled for cardiac catheterization possible PTCA. After explaining the procedure to the patient, all pros and cons were explained, all questions were answered. The patient signed the consent and then he was placed in the cardiac catheterization laboratory. Groin was prepped in SL fashion local anesthesia was used. Sheath placed in the right radial artery, [place] catheter was advanced to the left ventricular cavity, pressure was measured, pullback LV to aorta was done, engage the right and left coronary system, multiple views were obtained. At the end of the procedure the sheath was removed. Vascular band was used FINDINGS: Hemodynamics LV 136/21, end-diastolic pressure 21 Aorta 112/62 mean of 80 ANATOMY: Left Main is free of obstructive disease Left Anterior Descending is moderate in size, stent is patent in the mid LAD with 90% in-stent restenosis, mild disease less than 20% proximally Left Circumflex is moderate in size, nondominant artery, obtuse marginal branch is occluded getting some collaterals from the left system. The mid circumflex artery has 90% stenosis Right Coronary Artery is dominant artery with 70% stenosis proximally LV Gram was not done, pressure was measured Dominance right coronary artery CONCLUSION: Severe multivessel coronary artery disease including 90% in-stent mid LAD stenosis, 90% mid to distal circumflex artery that is fairly small artery and 70% proximal right coronary artery Occluded first obtuse marginal branch getting collaterals from the left system Dilated cardiomyopathy with severe diffuse left ventricular hypokinesia with ejection fraction known to be 31% on stress test. DISCUSSION AND RECOMMENDATION: Patient has severe cardiomyopathy with multivessel disease, will arrange for evaluation for possible high risk intervention versus bypass surgery Patient will be referred to a tertiary care center Anesthesia Type: Conscious Sedation Estimated blood loss (mL): 15 ml Contrast Amount: 30 ml Total Radiation Dose: 588 mGy Post-Procedure Diagnosis Post-operative diagnosis: Chest pain Coronary artery disease Congestive heart failure, dilated cardiomyopathy, left ventricular systolic dysfunction, ischemic cardiomyopathy Hypertension Hyperlipidemia ETHAN MCKEON MD Feb 17, 2023 09:38
[2023-02-17] MEDS ORDERED: NS IV 1000 ML 1,000 ML IV SCH (09:45)
== END 2023-02-17 12:12 | disposition home or self-care (01) ==
LOC: CATH 09:00 → SDC 10:00 → CATH 12:12
PROVIDERS: ATTEND Internal Medicine Cardiovascular Disease
DX: I25.10 Atherosclerotic heart disease of native coronary artery without angina pectoris (principal); I42.0 Dilated cardiomyopathy; I42.8 Other cardiomyopathies; I13.0 Hypertensive heart and chronic kidney disease with heart failure and stage 1 through stage 4 chronic kidney disease, or unspecified chronic kidney disease; I50.22 Chronic systolic (congestive) heart failure; I47.20 Ventricular tachycardia, unspecified; M48.00 Spinal stenosis, site unspecified; N18.9 Chronic kidney disease, unspecified; G47.33 Obstructive sleep apnea (adult) (pediatric); I65.23 Occlusion and stenosis of bilateral carotid arteries; N40.0 Benign prostatic hyperplasia without lower urinary tract symptoms; E78.2 Mixed hyperlipidemia; E66.9 Obesity, unspecified; E11.22 Type 2 diabetes mellitus with diabetic chronic kidney disease; E11.51 Type 2 diabetes mellitus with diabetic peripheral angiopathy without gangrene; Z91.199 Patient's noncompliance with other medical treatment and regimen due to unspecified reason; Z79.899 Other long term (current) drug therapy; Z68.34 Body mass index [BMI] 34.0-34.9, adult; Z79.4 Long term (current) use of insulin; Z79.84 Long term (current) use of oral hypoglycemic drugs; Z79.82 Long term (current) use of aspirin; Z79.01 Long term (current) use of anticoagulants
CPT/HCPCS: 71045; 80053; 80061; 81000; 85027; 85610; 85730; 87081; 93005; 93458; C1894; 36415